=== PATIENT | male | born 1955 | race Caucasian/White ===

== ENCOUNTER 2025-04-07 13:27 | Outpatient (CLI) | payer MEDICARE, OTHER ==
--- NOTE | 2025-04-08 05:03 | RADIOLOGY REPORT ---
INDICATION: UNSPECIFIED ACQUIRED DEFORMITY OF UNSPECIFIED LOWER LEG COMPARISON: None TECHNIQUE: CT of the left knee was performed without contrast. Volume transverse images were obtained and reconstructed in multiple planes using bone and soft tissue algorithms. Radiation Dose Information: CT Dose: CTDI volume is 8.3 mGy. Dose-length product is 1468 mGy*cm FINDINGS: The alignment is normal. Severe tricompartmental degenerative changes in the knee joint most prominent at the patellofemoral j oint space. Diffuse degenerative osteophyte formation at the distal femoral condyle. There is no fracture, dislocation or aggressive osseous lesion. Small joint effusion. Small fat containing left inguinal hernia. Colonic diverticulosis, partially imaged. 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
== END 2025-04-07 23:59 | disposition home or self-care (01) ==
LOC: RAD 13:27
PROVIDERS: ATTEND Orthopaedic Surgery
DX: M17.12 Unilateral primary osteoarthritis, left knee (principal); M25.462 Effusion, left knee; M25.762 Osteophyte, left knee; M21.962 Unspecified acquired deformity of left lower leg; K40.90 Unilateral inguinal hernia, without obstruction or gangrene, not specified as recurrent; K57.30 Diverticulosis of large intestine without perforation or abscess without bleeding
CPT/HCPCS: 73700